=== PATIENT | female | born 1950 | race Caucasian/White ===

== ENCOUNTER 2017-01-20 18:33 | Emergency (ER) | payer MEDICARE, BC ==
--- NOTE | 2017-01-20 21:55 | RAD ---
THREE VIEWS LEFT WRIST 01/20/17 HISTORY: Fall with trauma and pain of left wrist. AP, lateral, and oblique views left wrist is obtained. Images demonstrate a mildly displaced fracture involving the distal lateral aspect of the left scapho id extending into the articulation of the scaphoid and trapezium. This is concerning for intra-articu lar scaphoid fracture. No evidence of a transverse scaphoid fracture seen. IMPRESSION: Findings concerning for lateral distal left scaphoid fracture. POS: FELICITAS
== END 2017-01-20 20:20 | disposition home or self-care (01) ==
LOC: SCSER 18:33
DX: S62.012A Displaced fracture of distal pole of navicular [scaphoid] bone of left wrist, initial encounter for closed fracture (principal); W19.XXXA Unspecified fall, initial encounter

== ENCOUNTER 2017-07-28 07:33 | Observation (INO) | payer MEDICARE, BC ==
[2017-07-21 09:29] VITALS: BMI 21.9
--- NOTE | 2017-07-27 22:18 | HP ---
HISTORY OF PRESENT ILLNESS: Jennifer presents with protracted course of low back and bilateral post erior leg pain, which radiates began to the level of the feet. MRI scan from [facility] shows grade I spondylolisthesis, L4 and L5 as well as severe foraminal narrowing at L5-S1. She is already pursued [id number] medications and some home exercise treatments, but is not interested in pur suing physical therapy and starting in pursuing epidural steroid injections and is to move forward [facility] definitive treatment if possible. PAST MEDICAL HISTORY: Significant for lower back pain and unspecified eye problems. PAST SURGICAL HISTORY: Cholecystectomy. CURRENT MEDICATIONS: Fluoxetine and estradiol. ALLERGIES: No known drug allergies. PHYSICAL EXAMINATION: Patient is alert and oriented x3. Gait is antalgic. Lower extremity motor ex am is normal. ASSESSMENT: Back pain and lumbar radiculopathy. PLAN: Dr. Finnegan met with the patient, reviewed imaging and advocated for L4-S1 decompression and fus ion. He explained to the patient the risks, benefits, and alternatives to the procedure. The patien t expressed understanding and would like to move forward with surgery as discussed. I do believe the patient is mentally competent and capable of making medical decisions for herself and move forward w [facility] surgery as planned. This is Endy Bhatt PA-C dictating for Dr. Finnegan.
[2017-07-28] MEDS ORDERED: Lidocaine 2% Jelly 5 ML TUBE ONE (08:32)
[2017-07-28] MEDS ORDERED: Fentanyl 250 MCG/5 ML VIAL ONE (08:32)
[2017-07-28] MEDS ORDERED: Midazolam HCl 2 mg/2 ml Vial ONE (08:32)
[2017-07-28] MEDS ORDERED: CEFAZOLIN/Water 2 GM/20 ML SYRINGE ONE (09:02)
[2017-07-28] MEDS ORDERED: Thrombin 5000 UNITS/5 ML VIAL ONE (09:08)
[2017-07-28] MEDS ORDERED: Bupivacaine HCl 0.5%/Epinephrine 1:200,000/PF 30 ml Vial ONE (09:08)
[2017-07-28] MEDS ORDERED: PHENYLEPHRINE-NS 100 MCG/ML 10 ML SYRINGE ONE ×2 (11:44→13:40)
[2017-07-28] MEDS ORDERED: Ketorolac Tromethamine 30 MG/ML VIAL ONE (13:25)
--- NOTE | 2017-07-28 13:28 | OP ---
DATE OF PROCEDURE: 07/28/2017 SURGEON: Patrick Finnegan M.D. SODA MAKER: None. INDICATION: Pain. PREOPERATIVE DIAGNOSES: Lumbar spondylolisthesis with lumbar radiculopathy with lumbar stenosis. PROCEDURE: Reoperation, bilateral L4-5, L5-S1 facetectomies, bilateral L4 through S1 posterolateral instrumented fusion, placement of allograft, placement of autograft. ANESTHESIA: General. PROCEDURE IN DETAIL: The patient was brought into the operating room and placed under general anesth esia. She was flipped from a supine to a prone position on the operating room table. A linear incis ion was planned spanning L4-S1. This encompassed her old incision. After prepping and draping and a fter an appropriate operative pause, the incision was created. The soft tissues were swept away from midline. Self-retaining retractors were placed in the wound for optimal exposure. After confirming the appropriate level with C-arm fluoroscopy and after dissecting through extensive amount of scar w hich increased operative time by at least 50% and which will be reflected in a surgical modifier, fac etectomy was performed at L4-5 and L5-S1 bilaterally. After identifying the pedicle, the pedicle scr ews were placed bilaterally spanning L4-S1. An intraoperative 3D CT scan was performed which confirm ed appropriate placement of hardware. A doni was then placed across the screw heads and final tighten ed under slight degree of distraction. Allograft and autograft material was placed in the lateral co nfines of instrumentation construct. The wound was irrigated. Hemostasis was maintained throughout. The wound was then closed in anatomic layers and a pressure dressing was applied. There were no kn own procedural complications.
[2017-07-28] MEDS ORDERED: Ondansetron HCl/PF 4 MG/2 ML Vial ONE (13:40)
[2017-07-28] MEDS ORDERED: Dexamethasone 20 MG/5 ML VIAL ONE (13:40)
[2017-07-28] MEDS ORDERED: Glycopyrrolate 0.2 MG/ML 5 ML SYRINGE ONE (13:40)
[2017-07-28] MEDS ORDERED: Lidocaine 1% PF 5 ML VIAL ONE (13:40)
[2017-07-28] MEDS ORDERED: ePHEDrine/0.9% NaCl/PF SYRINGE 50 mg/10 ml ONE (13:40)
[2017-07-28] MEDS ORDERED: PROPOFOL 200 MG/20 ML VIAL ONE (13:40)
[2017-07-28] MEDS ORDERED: Fentanyl 100 MCG/2 ML VIAL ONE (13:46)
[2017-07-28] MEDS ORDERED: Ondansetron HCl/PF 4 MG/2 ML Vial IVP PRN (14:34)
[2017-07-28] MEDS ORDERED: Promethazine HCl 25 MG/ML VIAL IM/IV PRN (14:34)
[2017-07-28] MEDS ORDERED: Non-Formulary Medication 1 EACH PO PRN (14:34)
[2017-07-28] MEDS ORDERED: Ibuprofen 600 MG TAB PO PRN (15:02)
[2017-07-28] MEDS ORDERED: HYDROcodone/Acetaminophen 10/325 mg Tablet PO PRN ×2 (15:06)
[2017-07-28] MEDS ORDERED: Morphine 4 MG/ML VIAL ONE (15:06)
[2017-07-28] MEDS ORDERED: Promethazine HCl 25 MG/ML VIAL IM PRN (15:06)
[2017-07-28] MEDS ORDERED: Promethazine HCl 12.5 MG SUPP PR PRN (15:06)
[2017-07-28] MEDS ORDERED: Cyclobenzaprine 10 MG TAB PO PRN (15:06)
[2017-07-28] MEDS ORDERED: Ondansetron HCl/PF 4 MG/2 ML Vial IM PRN (15:06)
[2017-07-28] MEDS ORDERED: Morphine 4 MG/ML Carpuject SLOW IVP PRN (15:06)
[2017-07-28] MEDS ORDERED: Promethazine 25 MG TAB PO PRN (15:06)
[2017-07-28] MEDS: Sodium Chloride 0.9% 1,000 ML IV SCH (16:14)
[2017-07-28] MEDS: Ketorolac Tromethamine 30 MG/ML VIAL IVP SCH ×2 (17:22→23:59)
[2017-07-28] MEDS: CEFAZOLIN/Water 2 GM/20 ML SYRINGE SLOW IVP SCH (17:22)
[2017-07-28] MEDS: Gabapentin 300 MG CAP PO SCH (21:38)
[2017-07-29] MEDS: CEFAZOLIN/Water 2 GM/20 ML SYRINGE SLOW IVP SCH (01:57)
[2017-07-29] MEDS: Sodium Chloride 0.9% 1,000 ML IV SCH (05:05)
[2017-07-29] MEDS: Ketorolac Tromethamine 30 MG/ML VIAL IVP SCH (05:47)
[2017-07-29 08:30] VITALS: BP 103/65; TEMP 97.5
[2017-07-29] MEDS ORDERED: BIOTIN 2500 MCG PO SCH (09:00)
[2017-07-29] MEDS ORDERED: Estradiol 1 MG TAB PO SCH (09:00)
[2017-07-29] MEDS ORDERED: Cyanocobalamin (Vitamin B-12) 1,000 MCG TAB PO SCH (09:00)
[2017-07-29] MEDS ORDERED: POTASSIUM 99 MG PO SCH (09:00)
[2017-07-29] MEDS ORDERED: Calcium Carbonate + Vit D 1 TAB PO SCH (09:00)
[2017-07-29] MEDS ORDERED: FLUoxetine HCl 20 MG CAP PO SCH (09:00)
[2017-07-29] MEDS: Gabapentin 300 MG CAP PO SCH (09:50)
[2017-07-30] MEDS ORDERED: Ibuprofen 600 MG TAB PO PRN (21:00)
== END 2017-07-29 11:21 | disposition home or self-care (01) ==
LOC: SDC 07:33 → SURG B 14:51 → SDC 14:51 → UNDOADMOB 14:51 → SURG B 15:38 → SDC 07-29 11:21 → SURG B 07-29 11:21 → UNDODISOB 07-29 11:21
PROVIDERS: ADMIT Neurological Surgery; ATTEND Neurological Surgery
PROC: 0SG1071 Fusion of 2 or more Lumbar Vertebral Joints with Autologous Tissue Substitute, Posterior Approach, Posterior Column, Open Approach (ICD-10-PCS; principal; 2017-07-28)
DX: M43.16 Spondylolisthesis, lumbar region (principal); M54.16 Radiculopathy, lumbar region; M48.061 Spinal stenosis, lumbar region without neurogenic claudication; Z79.899 Other long term (current) drug therapy
CPT/HCPCS: 20930; 20936; 22612; 22614; 22840; 76001; 96361 ×2; 96374 ×3; 96375; 96376 ×2; C1713 ×2; C1768; G0378; J0670; J1100; J1885; J2001; J2250; J2270; J2405; J2704; J3010

== ENCOUNTER 2017-09-09 08:35 | Outpatient (CLI) | payer MEDICARE, BC ==
--- NOTE | 2017-09-09 10:36 | RAD ---
LUMBAR SPINE RADIOGRAPHS TWO VIEWS: Date: 09-09-17 Provided Clinical History: Status post-surgery. FINDINGS: Frontal and lateral views of the lumbar spine obtained standing. Five non-rib bearing lumbar type niesha tebral bodies are present. There is grade I-II anterolisthesis of L4 on L5. Lumbar alignment appears otherwise normal. Vertebral body heights appear preserved. Bilateral pedicle screws and vertical inte rconnecting rods span L4 through S1. There is no evidence for hardware loosening or migration. Hemila minotomy changes at L4 on the right suspected. Visualized pedicles appear intact. Surgical clips overlie the right hemiabdomen. Disc space narrowing and endplate degenerative changes are seen at L2-3 and L3-4. IMPRESSION: 1. Post-operative and degenerative change involving the lumbar spine as above. POS: FELICITAS
== END 2017-09-09 08:36 | disposition home or self-care (01) ==
LOC: TBSIIMAG 08:35
PROVIDERS: ATTEND Neurological Surgery
DX: M47.26 Other spondylosis with radiculopathy, lumbar region (principal); M43.16 Spondylolisthesis, lumbar region; M48.061 Spinal stenosis, lumbar region without neurogenic claudication; Z98.890 Other specified postprocedural states
CPT/HCPCS: 72100

== ENCOUNTER 2019-09-13 09:24 | Outpatient (CLI) | payer MEDICARE, BC ==
--- NOTE | 2019-09-13 11:51 | CT ---
CT LUMBAR SPINE WITHOUT CONTRAST: Date: =06/2019 INDICATION: Low back pain. FINDINGS: The lumbar vertebra maintain height. Degenerative disc changes seen at multiple levels. Vacuum disc p henomenon noted at L3-4, L4-5, and L5-S1. Loss of disc space is most pronounced at L5-S1. There is an anterolisthesis at L4-5 measured at 6.0 mm. There is slight posterolisthesis at L5-S1 andrew sured at 3.0 mm. Pedicle screws are present at the L4, L5, and S1 levels. L1-2: Mild disc bulge and moderate facet hypertrophy. Mild central canal stenosis. L2-3: Broad based disc bulge. Prominent facet hypertrophy. Mild central canal stenosis. L3-4: Diffuse disc bulge with severe facet and ligamentous hypertrophy. Severe central canal stenosi s. Pedicle screws at L4 appear adequately positioned. L4-5: Anterolisthesis as noted above. Posterior laminectomy change. No significant central canal sweta nosis apparent. Pedicle screws at L5 appear adequately [id number]. L5-S1: Mild bilateral foraminal narrowing due to hypertrophic change. Broad based disc bulge. Meter Record Clerk ior laminectomy change with mild central canal stenosis. Pedicle screws at S1 appear adequately positioned. No evidence of hardware loosening. IMPRESSION: Degenerative disc changes and postoperative changes in the lumbar spine as described above. POS: AGW
== END 2019-09-13 09:25 | disposition home or self-care (01) ==
LOC: TBSIIMAG 09:24
PROVIDERS: ATTEND Neurological Surgery
DX: M54.5 Low back pain (principal); M47.816 Spondylosis without myelopathy or radiculopathy, lumbar region; Z98.890 Other specified postprocedural states
CPT/HCPCS: 72131

== ENCOUNTER 2019-11-20 07:03 | Day surgery (SDC) | payer MEDICARE, BC ==
[2019-11-17 12:27] VITALS: BMI 21.9
[~2019-11-20 07:03] MED LIST: FLU VACC QS2020-21(65YR UP)/PF 240 MCG/0.7 ML SYRINGE IM ONE
[2019-11-20 08:19] VITALS: BP 140/92; TEMP 97.4
--- NOTE | 2019-11-20 08:51 | RAD ---
Lumbar spine 2 views HISTORY: Low back pain. FINDINGS: There are 5 lumbar type vertebrae. Rightward convex rotatory scoliotic curvature. Bilateral pedicle screws and vertical rods at the L4-5-S1 levels. The left S1 screw is fractured at the level of the base of the pedicle. There is full shaft width lat eral displacement of the posterior fragment. [place] superior and medial angulation. Disc space narrowing and minimal degenerative spondylolisthesis at the L4-5 level. Minimal degenerative retrolisthesis at the L2-3 and L3-4 levels. Other pedicles are intact. Vertebral body heights maintained. Osteophytosis throughout the lower face ts and sacroiliac joints. Phleboliths project over the pelvis. Metallic clips over the gallbladder fossa. IMPRESSION : Postoperative and degenerative changes lower lumbar spine. Fracture of the left S1 pedicle screw. Lumbar myelogram and CT are pending.
--- NOTE | 2019-11-21 12:28 | CT ---
Lumbar myelogram CT-guided CT lumbar spine with contrast HISTORY: Low back pain. Left foot drop. Prior surgery. FINDINGS: After explaining the procedure and answering all questions, limited CT imaging of the lower lumbar spine was performed with patient prone. Sterile technique, buffered local anesthesia, CT guidance, and a right L4-5 posterior approach were u sed to carefully advance the tip of a 22-gauge needle to be thecal sac. Approximately 8 cc of Isovue-200 M contrast was carefully instilled into the thecal sac under fluoroscopic control. Positio n confirmed. Needle was removed. Patient tolerated the procedure well and was eventually discharged in good condition. Images including the retroperitoneum again show a smoothly marginated homogeneous fat density mass wi thin the medial aspect of the superior pole left kidney that is 0.8 cm greatest diameter. Consistent with an angiomyolipoma, stable. T12-L1: Mild osteophytosis. Central canal is patent. Mild stenosis of each neural foramen. L1-2: Mild osteophytosis. Central canal and neural foramina are patent. L2-3: Disc space narrowing. Minimal degenerative retrolisthesis and posterior disc bulge. Mild stenos is of the central canal. Each neural foramen is patent. L3-4: Gas disc phenomenon. Mild disc space narrowing and minimal degenerative retrolisthesis. Posteri or disc bulge and circumferential degenerative changes. Severe stenosis of the central canal. Neural foramina are patent. L4-5: Posterior operative fixation, no vj-hardware lucency. Disc space narrowing with 0.5 cm spondy lolisthesis. Central canal and neural foramina are patent. L5-S1: Posterior operative fixation. Fracture of the left S1 pedicle screw at the base of the pedicle with one shaft width lateral displacement of the proximal fragment but only minimal vj-hardware lucency. Metallic fragments do not compromise the neural foramen. Thecal sac is patent. Moderate to s evere stenosis of each neural foramen. IMPRESSION : Postoperative and degenerative changes lower lumbar spine. Fracture of the left S1 pedicle screw with mild displacement. No hardware compromise upon the central canal or neural foramen. There is stenosis of each neural foramen at the lumbosacral junction, although it is symmetric, without severe compression of the left L5 nerve root. Central canal stenosis most severe at the L3-4 level. Transcribed Date/Time: 11/21/2019 12:28 PM
== END 2019-11-20 09:55 | disposition home or self-care (01) ==
LOC: RAD 07:03
PROVIDERS: ATTEND Anesthesiology
DX: T84.218A Breakdown (mechanical) of internal fixation device of other bones, initial encounter (principal); M43.16 Spondylolisthesis, lumbar region; M48.061 Spinal stenosis, lumbar region without neurogenic claudication; M48.05 Spinal stenosis, thoracolumbar region; F32.9 Major depressive disorder, single episode, unspecified; M19.90 Unspecified osteoarthritis, unspecified site; M81.0 Age-related osteoporosis without current pathological fracture; Z79.899 Other long term (current) drug therapy
CPT/HCPCS: 72100; 72132; 76380; 77002

== ENCOUNTER 2020-06-14 08:51 | Outpatient (CLI) | payer MEDICARE, BC ==
[2020-06-14 13:15] LABS: Anion Gap 14 mmol/L (10-20); BUN (Urea Nitrogen) 13 mg/dL (9.8-20.1); Calc. Creatinine Clearance 0 mL/min (70-130); Carbon Dioxide 25 mmol/L (23-31); Chloride 107 mmol/L (98-107); Glucose 66 mg/dL (80-115); Potassium 4.4 mmol/L (3.5-5.1); Sodium 142 mmol/L (136-145)
[2020-06-14 20:43] LABS: SARS-CoV-2 PCR by NAA Not Detected (NotDetected)
== END 2020-06-14 08:52 | disposition home or self-care (01) ==
LOC: LABBT 08:51
PROVIDERS: ATTEND Neurological Surgery
DX: Z01.812 Encounter for preprocedural laboratory examination (principal); M48.062 Spinal stenosis, lumbar region with neurogenic claudication; Z20.822 Contact with and (suspected) exposure to COVID-19
CPT/HCPCS: 80048; U0003; U0005; 87635

== ENCOUNTER 2020-06-19 06:31 | Day surgery (SDC) | payer MEDICARE, BC ==
[2020-06-18 10:14] VITALS: BMI 20.7
[2020-06-19] MEDS ORDERED: Thrombin 5000 UNITS/5 ML VIAL ONE (06:47)
[2020-06-19] MEDS ORDERED: EPINEPHrine 1 MG/ML AMP ONE (06:47)
[2020-06-19] MEDS ORDERED: Bupivacaine PF 0.5% 30 ML VIAL ONE (06:47)
[2020-06-19] MEDS ORDERED: Midazolam HCl 2 mg/2 ml Vial ONE (07:14)
[2020-06-19] MEDS ORDERED: Fentanyl 100 MCG/2 ML VIAL ONE ×5 (07:18→10:24)
[2020-06-19] MEDS ORDERED: Glycopyrrolate 0.2 MG/ML 5 ML SYRINGE ONE (08:07)
[2020-06-19] MEDS ORDERED: Dexamethasone 20 MG/5 ML VIAL ONE (08:07)
[2020-06-19] MEDS ORDERED: PROPOFOL 200 MG/20 ML VIAL ONE (08:07)
[2020-06-19] MEDS ORDERED: PHENYLEPHRINE-NS 100 MCG/ML 10 ML SYRINGE ONE ×2 (08:07→09:20)
[2020-06-19] MEDS ORDERED: Ketorolac Tromethamine 30 MG/ML VIAL ONE (08:07)
[2020-06-19] MEDS ORDERED: Ondansetron PF 4 MG/2 ML Vial ONE (08:07)
[2020-06-19] MEDS ORDERED: Rocuronium Bromide 10 MG/ML (10ML VIAL) ONE (08:07)
[2020-06-19] MEDS ORDERED: diphenhydrAMINE 50 MG/ML VIAL ONE (08:07)
[2020-06-19] MEDS ORDERED: Meperidine HCl/PF 25 MG/ML VIAL ONE (10:09)
[2020-06-19] MEDS ORDERED: HYDROcodone/Acetaminophen 5/325 mg Tablet ONE (11:25)
== END 2020-06-19 12:56 | disposition home or self-care (01) ==
LOC: SDC 06:31
PROVIDERS: ATTEND Neurological Surgery
PROC: 01NB0ZZ Release Lumbar Nerve, Open Approach (ICD-10-PCS; principal; 2020-06-19)
DX: M48.062 Spinal stenosis, lumbar region with neurogenic claudication (principal); M54.16 Radiculopathy, lumbar region; I25.10 Atherosclerotic heart disease of native coronary artery without angina pectoris; G89.4 Chronic pain syndrome; Z79.01 Long term (current) use of anticoagulants; Z79.899 Other long term (current) drug therapy
CPT/HCPCS: 76000; J0171; J0690; J1100; J1200; J1885; J2175; J2250; J2405; J2704; J3010; S0020

== ENCOUNTER 2020-07-16 09:21 | Outpatient (CLI) | payer MEDICARE, BC | END 2020-07-16 09:22 | disposition home or self-care (01) | LOC: TBSIIMAG 09:21 | PROVIDERS: ATTEND Neurological Surgery | DX: M47.14 Other spondylosis with myelopathy, thoracic region (principal); M47.812 Spondylosis without myelopathy or radiculopathy, cervical region | CPT/HCPCS: 72146 ==

== ENCOUNTER 2021-01-10 08:36 | Outpatient (CLI) | payer MEDICARE, BC | END 2021-01-10 08:37 | disposition home or self-care (01) | LOC: SCSMRI 08:36 → EDSTATUS 09:00 | PROVIDERS: ATTEND Nurse Practitioner Family | DX: M47.27 Other spondylosis with radiculopathy, lumbosacral region (principal); M47.816 Spondylosis without myelopathy or radiculopathy, lumbar region; Z98.890 Other specified postprocedural states | CPT/HCPCS: 72148 ==

== ENCOUNTER 2021-03-11 16:11 | Outpatient (CLI) | payer MEDICARE, BC | END 2021-03-11 16:12 | disposition home or self-care (01) | LOC: BICRAD 16:11 | PROVIDERS: ATTEND Internal Medicine Cardiovascular Disease | DX: R06.02 Shortness of breath (principal) | CPT/HCPCS: 71046 ==

== ENCOUNTER 2021-05-02 10:15 | Observation (INO) | payer MEDICARE, BC ==
[2021-05-02 11:50] VITALS: BMI 21.6
[2021-05-07] MEDS ORDERED: EPINEPHrine 1 MG/ML AMP ONE (07:51)
[2021-05-07] MEDS ORDERED: Fentanyl 100 MCG/2 ML VIAL ONE ×3 (08:36→11:32)
[2021-05-07] MEDS ORDERED: Lidocaine 2% Jelly 5 ML TUBE ONE (08:36)
[2021-05-07] MEDS ORDERED: HYDROmorphone 0.5 MG/0.5 ML SYRINGE ONE (08:36)
[2021-05-07] MEDS ORDERED: ceFAZolin 2 GM/DEX 5% 100 ML BAG ONE ×2 (08:55→16:51)
[2021-05-07] MEDS ORDERED: Rocuronium Bromide 10 MG/ML (10ML VIAL) ONE (09:03)
[2021-05-07] MEDS ORDERED: Ondansetron PF 4 MG/2 ML Vial ONE (09:03)
[2021-05-07] MEDS ORDERED: Lidocaine 1% PF 5 ML VIAL ONE (09:03)
[2021-05-07] MEDS ORDERED: ePHEDrine 50 MG/ML VIAL ONE (09:03)
[2021-05-07] MEDS ORDERED: PROPOFOL 200 MG/20 ML VIAL ONE (09:03)
[2021-05-07] MEDS ORDERED: Dexamethasone 20 MG/5 ML VIAL ONE (09:03)
[2021-05-07] MEDS ORDERED: PHENYLEPHRINE-NS 100 MCG/ML 10 ML SYRINGE ONE (09:03)
[2021-05-07] MEDS ORDERED: Glycopyrrolate 0.2 MG/ML 5 ML SYRINGE ONE (09:03)
[2021-05-07] MEDS ORDERED: Morphine 4 MG/ML VIAL ONE ×3 (11:51→14:09)
[2021-05-07] MEDS ORDERED: Promethazine HCl 25 MG/ML VIAL ONE (14:03)
[2021-05-07] MEDS ORDERED: HYDROcodone/Acetaminophen 5/325 mg Tablet ONE (14:47)
[2021-05-07] MEDS ORDERED: Ondansetron PF 4 MG/2 ML Vial IM PRN (18:44)
[2021-05-07] MEDS ORDERED: HYDROcodone/Acetaminophen 10/325 mg Tablet PO PRN (18:45)
[2021-05-07] MEDS ORDERED: Acetaminophen 650 MG Suppository PR PRN (18:45)
[2021-05-07] MEDS ORDERED: tiZANidine HCl 4 MG TAB PO PRN (18:45)
[2021-05-07] MEDS ORDERED: diphenhydrAMINE 50 MG/ML VIAL IVP PRN (18:45)
[2021-05-07] MEDS ORDERED: Morphine 4 MG/ML VIAL SLOW IVP PRN ×2 (18:45→18:52)
[2021-05-07] MEDS ORDERED: Acetaminophen 325 MG TAB PO PRN (18:45)
[2021-05-07] MEDS ORDERED: diphenhydrAMINE 25 MG CAP PO PRN (18:45)
[2021-05-07] MEDS ORDERED: ALPRAZolam 0.25 MG TAB PO PRN (18:57)
[2021-05-07] MEDS: HYDROcodone/Acetaminophen 10/325 mg Tablet PO PRN (22:07)
[2021-05-07] MEDS: Sodium Chloride 0.9% 1,000 ML IV SCH (22:08)
[2021-05-08] MEDS: CEFAZOLIN 2 GM, Admixture Fee 1 EACH in Sodium Chloride 0.9% 100 ML IVPB SCH ×2 (00:40→09:21)
[2021-05-08] MEDS: HYDROcodone/Acetaminophen 10/325 mg Tablet PO PRN (04:01)
[2021-05-08] MEDS: Sodium Chloride 0.9% 1,000 ML IV SCH (04:22)
[2021-05-08 08:12] VITALS: TEMP 98.8
[2021-05-08] MEDS ORDERED: Estradiol 1 MG TAB PO SCH (09:00)
[2021-05-08] MEDS ORDERED: Potassium Chloride 10 MEQ TAB PO SCH (09:00)
[2021-05-08] MEDS ORDERED: Cyanocobalamin (Vitamin B-12) 1,000 MCG TAB PO SCH (09:00)
[2021-05-08] MEDS ORDERED: FLUoxetine HCl 20 MG CAP PO SCH (09:00)
[2021-05-08] MEDS ORDERED: Calcium Carbonate 600 MG + Vit D TAB PO SCH (09:00)
[2021-05-08] MEDS ORDERED: Multivitamin W/ Minerals 1 TAB PO SCH (09:00)
[2021-05-08 11:44] VITALS: BP 101/65
== END 2021-05-08 13:15 | disposition home or self-care (01) ==
LOC: SURG A 05-07 06:14 → INTOOBSV 05-07 06:14 → SURG A 05-07 18:04
PROVIDERS: ADMIT Neurological Surgery; ATTEND Neurological Surgery
PROC: 0SJ00ZZ Inspection of Lumbar Vertebral Joint, Open Approach (ICD-10-PCS; principal; 2021-05-07)
PROC: 0SJ30ZZ Inspection of Lumbosacral Joint, Open Approach (ICD-10-PCS; 2021-05-07)
PROC: 01NB0ZZ Release Lumbar Nerve, Open Approach (ICD-10-PCS; 2021-05-07)
PROC: 0SG0071 Fusion of Lumbar Vertebral Joint with Autologous Tissue Substitute, Posterior Approach, Posterior Column, Open Approach (ICD-10-PCS; 2021-05-07)
DX: M48.061 Spinal stenosis, lumbar region without neurogenic claudication (principal); T84.216A Breakdown (mechanical) of internal fixation device of vertebrae, initial encounter; M19.90 Unspecified osteoarthritis, unspecified site; Z86.16 Personal history of COVID-19; Z86.718 Personal history of other venous thrombosis and embolism; Z79.899 Other long term (current) drug therapy
CPT/HCPCS: 20930; 20936; 22612; 22830; 22840; 63047; 76000; 96374; 96376; C1713; C1768; G0378 ×2; J0171; J0690; J1100; J1170; J2270; J2405; J2550; J2704; J3010; J3490

== ENCOUNTER 2022-04-10 13:17 | Outpatient (CLI) | payer MEDICARE, BC | END 2022-04-10 13:18 | disposition home or self-care (01) | LOC: ULT 13:17 | PROVIDERS: ATTEND Internal Medicine Cardiovascular Disease | DX: R06.02 Shortness of breath (principal); I07.1 Rheumatic tricuspid insufficiency | CPT/HCPCS: 93306 ==

== ENCOUNTER 2022-05-04 19:38 | Inpatient (IN) | payer MEDICARE, BC ==
[2022-05-04 21:52] VITALS: BMI 22.1
[2022-05-04] MEDS ORDERED: ALPRAZolam 0.25 MG TAB PO PRN (21:59)
[2022-05-04] MEDS ORDERED: Heparin 10,000 UNITS/ 10 ML VIAL SLOW IVP SCH (22:00)
[2022-05-04] MEDS ORDERED: Heparin 25,000 units/D5W 500 ML IVPB SCH (22:00)
[2022-05-04 22:42] LABS: Hemoglobin 14.3 g/dL (12.0-16.0); Platelet Count 201 10x3/uL (130-400)
[2022-05-04] MEDS ORDERED: traZODone HCl 50 MG TAB PO PRN (22:44)
[2022-05-04 22:52] LABS: PTT 121.7 sec (22.9-36.1)
[2022-05-04] MEDS ORDERED: Acetaminophen 325 MG TAB PO PRN (22:56)
[2022-05-04 23:47] LABS: Troponin I 1.146 ng/mL (< 0.028)
[2022-05-05 01:54] LABS: PTT 134.9 sec (22.9-36.1)
[2022-05-05 02:10] LABS: Troponin I 1.186 ng/mL (< 0.028)
[2022-05-05] MEDS: Calcium Carbonate + Vit D 250 MG TAB PO SCH (08:35)
[2022-05-05] MEDS: Potassium Chloride 10 MEQ TAB PO SCH (08:35)
[2022-05-05] MEDS: FLUoxetine HCl 20 MG CAP PO SCH (08:35)
[2022-05-05] MEDS: Furosemide 20 MG TAB PO SCH (08:36)
[2022-05-05] MEDS: Cyanocobalamin (Vitamin B-12) 1,000 MCG TAB PO SCH (08:36)
[2022-05-05] MEDS: Multivitamin W/ Minerals 1 TAB PO SCH (08:36)
[2022-05-05] MEDS ORDERED: Meloxicam 7.5 MG TAB PO SCH (09:00)
[2022-05-05] MEDS ORDERED: Baclofen 10 MG TAB PO SCH ×2 (09:00→21:00)
[2022-05-05] MEDS: Gabapentin 300 MG CAP PO SCH (20:26)
[2022-05-05] MEDS ORDERED: Melatonin 3 MG TAB PO SCH (21:00)
[2022-05-06 05:19] LABS: #Eosinphils 0.2 thou/uL (0.0-0.7); #Monocytes 0.3 thou/uL (0.11-0.59); #Neutrophils 1.5 thou/uL (1.40-6.50); %Basophils 0.5 % (0.0-1.0); %Eosinophils 5.9 % (0.0-10.0); %Lymphocytes 33.4 % (21.0-51.0); %Monocytes 10.8 % (0.0-10.0); %Neutrophils 49.4 % (42.0-75.0); Hemoglobin 14.1 g/dL (12.0-16.0); Mean Corpuscular HGB CONC 33.7 g/dL (32.0-36.0); Mean Corpuscular Hemoglobin 32.2 pg (27.0-31.0); Mean Corpuscular Volume 95.7 fl (78.0-98.0); Mean Platelet Volume 8.6 fL (7.4-10.4); Platelet Count 149 10x3/uL (130-400); RBC Distribution Width 11.6 % (11.5-14.5); Red Blood Cell (RBC) Count 4.38 mill/uL (4.20-5.40)
[2022-05-06 05:29] LABS: Anion Gap 11 mmol/L (10-20); BUN (Urea Nitrogen) 15 mg/dL (9.8-20.1); Calc. Creatinine Clearance 74 mL/min (70-130); Calcium 9.6 mg/dL (7.8-10.44); Carbon Dioxide 23 mmol/L (23-31); Chloride 109 mmol/L (98-107); Estimated GFR 94; Glucose 101 mg/dL (80-115); Potassium 3.7 mmol/L (3.5-5.1); Sodium 139 mmol/L (136-145)
[2022-05-06] MEDS: Calcium Carbonate + Vit D 250 MG TAB PO SCH (08:50)
[2022-05-06] MEDS: Gabapentin 300 MG CAP PO SCH (08:51)
[2022-05-06] MEDS: Furosemide 20 MG TAB PO SCH (08:52)
[2022-05-06] MEDS: Multivitamin W/ Minerals 1 TAB PO SCH (08:52)
[2022-05-06] MEDS: Potassium Chloride 10 MEQ TAB PO SCH (08:53)
[2022-05-06] MEDS: FLUoxetine HCl 20 MG CAP PO SCH (08:55)
[2022-05-06] MEDS ORDERED: Apixaban 5 MG TAB PO SCH ×2 (09:00→17:30)
[2022-05-06] MEDS ORDERED: Folic Acid 1 MG TAB PO SCH (09:00)
[2022-05-06] MEDS ORDERED: Estradiol 1 MG TAB PO SCH (09:00)
[2022-05-06] MEDS ORDERED: Ascorbic Acid 500 mg Chewable Tablet PO SCH (09:00)
[2022-05-06] MEDS ORDERED: Cyanocobalamin (Vitamin B-12) 1,000 MCG TAB PO SCH ×2 (09:06→09:30)
[2022-05-06] MEDS: Cyanocobalamin (Vitamin B-12) 1,000 MCG TAB PO SCH (09:35)
[2022-05-06 12:24] VITALS: TEMP 97.4
[2022-05-06 15:58] VITALS: BP 110/70
[2022-05-07] MEDS ORDERED: Cyanocobalamin (Vitamin B-12) 1,000 MCG TAB PO SCH (09:00)
== END 2022-05-06 17:22 | disposition home or self-care (01) | DRG 175 ==
LOC: IMCU/EMU 19:45
PROVIDERS: ADMIT Student in an Organized Health Care Education/Training Program; ATTEND Family Medicine
DX: I26.99 Other pulmonary embolism without acute cor pulmonale (principal); I21.A1 Myocardial infarction type 2; G12.21 Amyotrophic lateral sclerosis; M19.90 Unspecified osteoarthritis, unspecified site; Z96.642 Presence of left artificial hip joint; I49.3 Ventricular premature depolarization; Z79.01 Long term (current) use of anticoagulants; Z79.899 Other long term (current) drug therapy; Z86.718 Personal history of other venous thrombosis and embolism; Z98.890 Other specified postprocedural states; Z90.49 Acquired absence of other specified parts of digestive tract; Z90.710 Acquired absence of both cervix and uterus; Z90.89 Acquired absence of other organs; I08.1 Rheumatic disorders of both mitral and tricuspid valves
CPT/HCPCS: 36415; 71045; 71275; 80048; 80053; 82550; 82553; 83690; 83880; 84484; 85025; 85730; 93005; 93306; 96365; 96366; 96375; J1644